=== PATIENT | male | born 1935 | race Caucasian/White ===

== ENCOUNTER → 2021-05-22 | Outpatient (CLI) | payer MEDICARE, BC ==
[~2021-05-22] MED LIST: ASPIRIN EC81 MG PO; COREG6.25 MG PO; HYDROCHLOROTHIA25 MG PO; HYDROCODON-ACE1 EAC4 PO; LEVOTHYROXINE50 MC1 PO; LIPITOR40 MG PO; NORTRIPTYLIN; PAMELOR10 MG PO; PLAVIX 75 MG TA75 MG PO; POTASSIUM; PRILOSEC OTC20 MG PO; TERBINAFINE HC250 MG PO; TYLENOL EXTRA500 MG PO; VIT D; VITAMIN B12; ZESTRIL5 MG PO
[2021-05-22 11:13] LABS: HEMOGLOBIN 12.5 gm/dl (14.0-17.5); RED BLOOD COUNT 3.84 M/UL (4.20-5.50); WHITE BLOOD COUNT 4.4 K/UL (4.5-11.0)
[2021-05-22 11:30] LABS: BUN/CREATININE RATIO 14 (0-10)
== END ==
LOC: EDBD 10:00 → OPSV2 10:00
PROVIDERS: Orthopaedic Surgery
DX: Z01.818 Encounter for other preprocedural examination (principal); M19.041 Primary osteoarthritis, right hand; R91.8 Other nonspecific abnormal finding of lung field; I45.10 Unspecified right bundle-branch block
CPT/HCPCS: 71046; 80048; 85025; 93005

== ENCOUNTER → 2021-05-28 | Day surgery (SDC) | payer MEDICARE, BC | END | disposition home or self-care (01) | LOC: OR 06:08 → EDBD 07:30 → OR 09:05 | DX: M18.0 Bilateral primary osteoarthritis of first carpometacarpal joints (principal); I10 Essential (primary) hypertension; K21.9 Gastro-esophageal reflux disease without esophagitis; E07.9 Disorder of thyroid, unspecified; E78.5 Hyperlipidemia, unspecified; I25.10 Atherosclerotic heart disease of native coronary artery without angina pectoris; F32.9 Major depressive disorder, single episode, unspecified; Z95.1 Presence of aortocoronary bypass graft; Z95.818 Presence of other cardiac implants and grafts; Z90.49 Acquired absence of other specified parts of digestive tract; Z88.5 Allergy status to narcotic agent; Z88.8 Allergy status to other drugs, medicaments and biological substances; Z79.01 Long term (current) use of anticoagulants; Z79.82 Long term (current) use of aspirin; Z79.891 Long term (current) use of opiate analgesic; Z79.899 Other long term (current) drug therapy | CPT/HCPCS: 73130; 76000; C1713; J0171; J0690; J1100; J2001; J2370; J2405; J2704; J2795; J3010; J7120 ==